=== PATIENT | male | born 1965 | race Caucasian/White ===

== ENCOUNTER → 2021-03-26 | Outpatient (CLI) | payer BC ==
[~2021-03-26] MED LIST: AZIT500 PO; HYDACE5 PO; TOBR.3OPSO OS
[2021-03-26 18:56] LABS: BASOPHILS ABSOLUTE AUTO 0.01 K/mm3 (0.00-0.23); BASOPHILS PERCENT AUTO 0 % (0-2); EOSINOPHILS ABSOLUTE AUTO 0.03 K/mm3 (0.00-0.68); EOSINOPHILS PERCENT AUTO 1 % (0-6); Hematocrit 45.9 % (37.0-53.0); IMMATURE GRAN ABSOLUTE AUTO 0.06 K/mm3 (0.00-0.10); IMMATURE GRAN PERCENT AUTO 1 % (0-1); LYMPHOCYTES ABSOLUTE AUTO 0.96 K/mm3 (0.84-5.20); LYMPHOCYTES PERCENT AUTO 15 % (21-46); MONOCYTES ABSOLUTE AUTO 0.29 K/mm3 (0.16-1.47); MONOCYTES PERCENT AUTO 5 % (4-13); Mean Corpuscular HGB 28.7 pg (26.0-34.0); Mean Corpuscular HGB Conc 34.9 g/dL (31.5-36.5); Mean Corpuscular Volume 82 fL (80-100); Mean Platelet Volume 9.6 fL (9.1-12.4); NEUTROPHILS ABSOLUTE AUTO 4.95 K/mm3 (1.96-9.15); NEUTROPHILS PERCENT AUTO 79 % (41-73); Platelet Count 331 K/mm3 (150-400); RDW Coefficient Variation 13.2 % (11.7-14.2); RDW Standard Deviation 39.4 fL (35.1-46.3); Red Blood Cell Count 5.58 M/mm3 (4.30-5.90)
[2021-03-26 19:09] LABS: Anion Gap 15 mmol/L (6-16); Blood Urea Nitrogen 18 mg/dL (8-24); CO2, Blood 22 mmol/L (21-32); Calcium, Blood 8.6 mg/dL (8.5-10.1); Chloride, Blood 101 mmol/L (98-108); Creatinine, Blood 0.82 mg/dL (0.60-1.20); Glomerular Filtration Rate >60 (60-); Glucose, Blood 106 mg/dL (70-99); Potassium, Blood 3.5 mmol/L (3.5-5.5); Sodium, Blood 138 mmol/L (136-145)
== END | disposition home or self-care (01) ==
LOC: LAB SHORT 18:50
PROVIDERS: Physician Assistant Surgical
DX: R53.83 Other fatigue (principal); R06.09 Other forms of dyspnea
CPT/HCPCS: 80048; 84443; 84484; 85025; 85379

== ENCOUNTER 2021-09-28 02:59 | Emergency (ER) | payer OTHER | END 2021-09-28 06:42 | disposition home or self-care (01) | LOC: ER 02:59 | DX: R07.9 Chest pain, unspecified (principal); Z87.891 Personal history of nicotine dependence ==

== ENCOUNTER 2023-07-28 04:45 | Inpatient (IN) | payer OTHER ==
[2023-07-28] VITALS (15 sets, daily range): BP systolic 139–192; BP diastolic 91–127
[~2023-07-28] VITALS: Ht 180.3 cm; Wt 119.4 kg
[2023-07-28] MEDS ORDERED: Aspirin 325 MG Tab PO ONE (05:00)
[2023-07-28] MEDS ORDERED: Nitroglycerin Patch 0.4 MG / HR TD ONE (05:00)
[2023-07-28] MEDS ORDERED: Metoprolol Tartrate 1 MG/ML 5 ML VIAL IV ONE (05:05)
[2023-07-28 05:14] LABS: BASOPHILS ABSOLUTE AUTO 0.06 K/mm3 (0.00-0.23); BASOPHILS PERCENT AUTO 1 % (0-2); EOSINOPHILS ABSOLUTE AUTO 0.16 K/mm3 (0.00-0.68); EOSINOPHILS PERCENT AUTO 3 % (0-6); Hemoglobin 17.4 g/dL (13.5-17.5); IMMATURE GRAN ABSOLUTE AUTO 0.01 K/mm3 (0.00-0.10); IMMATURE GRAN PERCENT AUTO 0 % (0-1); LYMPHOCYTES ABSOLUTE AUTO 1.64 K/mm3 (0.84-5.20); LYMPHOCYTES PERCENT AUTO 28 % (21-46); MONOCYTES ABSOLUTE AUTO 0.47 K/mm3 (0.16-1.47); MONOCYTES PERCENT AUTO 8 % (4-13); Mean Corpuscular HGB 28.2 pg (26.0-34.0); Mean Corpuscular HGB Conc 32.8 g/dL (31.5-36.5); Mean Corpuscular Volume 86 fL (80-100); Mean Platelet Volume 9.9 fL (9.1-12.4); NEUTROPHILS ABSOLUTE AUTO 3.46 K/mm3 (1.96-9.15); NEUTROPHILS PERCENT AUTO 60 % (41-73); Platelet Count 252 K/mm3 (150-400); RDW Coefficient Variation 13.7 % (11.7-14.2); RDW Standard Deviation 42.9 fL (35.1-46.3); Red Blood Cell Count 6.18 M/mm3 (4.30-5.90)
[2023-07-28 05:28] LABS: Anti-Xa UFH, PHA Monitoring <0.10 IU/mL; International Normalized Ratio 0.96; Prothrombin Time Results 10.3 Sec (9.7-11.5)
[2023-07-28 05:36] LABS: Alanine Aminotransfer (ALT/SGP 69 U/L (12-78); Albumin, Blood 3.9 g/dL (3.4-5.0); Albumin/Globulin Ratio 1.1 (0.8-1.8); Alk Phos 104 U/L (50-136); Anion Gap 10 mmol/L (3-11); Aspartate Aminotrans (AST/SGOT 28 U/L (12-37); Bilirubin, Total 0.3 mg/dL (0.1-1.0); Blood Urea Nitrogen 22 mg/dL (8-24); Bun/Creatinine Ratio 25.1 (12.0-20.0); CO2, Blood 23 mmol/L (21-32); Calcium, Blood 9.7 mg/dL (8.5-10.1); Chloride, Blood 113 mmol/L (98-108); Creatinine, Blood 0.88 mg/dL (0.60-1.20); Globulin, Blood 3.6 g/dL (2.2-4.0); Glomerular Filtration Rate 102 (60-); Glucose, Blood 124 mg/dL (70-99); Potassium, Blood 4.2 mmol/L (3.5-5.5); Sodium, Blood 142 mmol/L (136-145); Total Protein, Blood 7.5 g/dL (6.4-8.2)
[2023-07-28] MEDS ORDERED: Acetaminophen 325 MG TABLET PO PRN (05:50)
[2023-07-28] MEDS ORDERED: Ondansetron HCl 2 MG / ML 2ML Vial IV PRN (05:55)
[2023-07-28] MEDS ORDERED: Lactated Ringer's 1,000 ML IV SCH (06:00)
[2023-07-28 06:19] LABS: CHOL/HDL RATIO 5.9; Cholesterol 224 mg/dL (50-200); HDL Cholesterol 38 mg/dL (>39); LDL/HDL RATIO 3.5; Low Density Lipoprotein Chol 133 mg/dL (0-110); Triglycerides 265 mg/dL (30-160); Very Low Density Lipoprot Chol 53 mg/dL (6-32)
[2023-07-28] MEDS ORDERED: Dose Adjust by Pharmacy XX STA ×2 (06:39→21:46)
[2023-07-28] MEDS ORDERED: Heparin Sodium,Porcine/0.5 NS 500 ML IV SCH (06:40)
[2023-07-28] MEDS ORDERED: Heparin Sodium 5000 Units/ML 1ML MDV IV ONE (06:40)
[2023-07-28] MEDS ORDERED: Metoprolol Succinate 25 MG TABCR PO SCH (09:00)
[2023-07-28] MEDS ORDERED: Aspirin 81 MG Chew PO SCH (09:00)
[2023-07-28] MEDS ORDERED: Atorvastatin 40 MG Tab PO SCH (09:00)
--- NOTE | 2023-07-28 09:30 | NUR ---
INITIAL ASSESSMENT: Report recieved from Israel TOWNSEND RN, patient arrived to PCU 16 via gurney and was able to abmulate to the bed IND. He is alert and oriented x4. He reports he was having chest pressure that went up his neck and down into his arm, it woke him from sleep last night. He reports slight chest pressure, rates it at a 3/10, he states its much better than last night. HRR, he is in SR with some PVCs in the 80s. He is still hypertensive, 158/125-po metoprolol given at this time. LS CTA, patient does have a history of LLL lobectomy, Biox is high 90s on RA. BT+, mild distention-pt states is normal. He is able to ambulate to the bathroom IND. Dr. Salinas at the bedside to discuss angiogram. Patient denies other needs at this time. Call light in reach.
[2023-07-28] MEDS ORDERED: Oxymetazoline 0.05% Nasal Relief Spray 15mL BTL PRN (10:00)
[2023-07-28] MEDS ORDERED: IBUP200 PO (10:06)
[2023-07-28] MEDS ORDERED: AFRIN15 M6 INH (10:06)
[2023-07-28] MEDS ORDERED: Heparin Sodium 1000 Units/ML 10ML MDV ONE ×2 (10:31→11:04)
[2023-07-28] MEDS ORDERED: Nitroglycerin 2 MG/20 ML BTL ONE (10:31)
[2023-07-28] MEDS ORDERED: NS 1,000 ML IV ONE ×2 (10:31→10:57)
[2023-07-28] MEDS ORDERED: NiCARdipine HCL 1,000 MCG/5 ML SYR ONE (10:31)
[2023-07-28] MEDS ORDERED: NS 250 ML IV ONE (10:31)
[2023-07-28] MEDS ORDERED: FentaNYL Citrate 50 MCG/ML 2 ML Injection ONE (10:57)
[2023-07-28] MEDS ORDERED: Midazolam HCl 1MG / ML 2ML Vial ONE (10:57)
[2023-07-28] MEDS ORDERED: Ticagrelor 90 MG TABLET ONE (11:17)
--- NOTE | 2023-07-28 12:00 | NUR ---
Update: Patient arrived back from the [facility] lab[facility]. He has a right radial site with TR band in place, 12 cc in the band. Site has minimal oozing good cap refill, good pleth, and the patient is not C/O any N/T. Patient has multivessel disease and will need to be transferred for a CABG, [facility] staff will update us when they have an accepting physician.
--- NOTE | 2023-07-28 14:00 | NUR ---
Update: Dr. Chacon called to norify her of patients hypertension, see new orders. Patient has been accepted at [facility] with an anticipated transfer date of tomorrow or the next day. This RN went to start to deflate the TR band and there was only 2cc of air left, will check for leaks. There is a hematoma above the site, pressure was applied for a couple of minutes, will reassess again before I restart the hep gtt.
[2023-07-28] MEDS ORDERED: Metoprolol Tartrate 25 MG Tab PO SCH ×2 (14:05→18:00)
--- NOTE | 2023-07-28 18:40 | NUR ---
Summary: Patient arrived to PCU from the ED this AM, he was admitted with chest pain that woke him last night. He is alert and orietned x4. HRR, he has been SR with PVCs in the 70s-80s, blood pressure has been high-its better with metoprolol dosing change. He had an angiogram done today, he has multivessle disease and needs a CABG. He has been accepted at [facility] with an anticipated transfer date of tomorrow or the following day. He has been chest pain free. LS CTA, biox has been high 90s on RA. BT+, he was able to have a BM this evening. PPP, no edema present. This RN restarted his hep gtt post cath at 12u/kg/hr. He has a medium sized hematoma above his radial site, it has been stable after holding pressure for a couple on minutes.
[2023-07-29 00:22] VITALS: BP 140/103
[2023-07-29 03:59] VITALS: BP 103/79
[2023-07-29] MEDS ORDERED: Nicotine 7 MG PATCH TOP SCH (04:10)
[2023-07-29 04:11] LABS: BASOPHILS ABSOLUTE AUTO 0.05 K/mm3 (0.00-0.23); BASOPHILS PERCENT AUTO 1 % (0-2); EOSINOPHILS ABSOLUTE AUTO 0.21 K/mm3 (0.00-0.68); EOSINOPHILS PERCENT AUTO 3 % (0-6); Hematocrit 49.8 % (37.0-53.0); Hemoglobin 16.5 g/dL (13.5-17.5); IMMATURE GRAN ABSOLUTE AUTO 0.01 K/mm3 (0.00-0.10); IMMATURE GRAN PERCENT AUTO 0 % (0-1); LYMPHOCYTES ABSOLUTE AUTO 1.95 K/mm3 (0.84-5.20); LYMPHOCYTES PERCENT AUTO 27 % (21-46); MONOCYTES ABSOLUTE AUTO 0.55 K/mm3 (0.16-1.47); MONOCYTES PERCENT AUTO 8 % (4-13); Mean Corpuscular HGB 28.4 pg (26.0-34.0); Mean Corpuscular HGB Conc 33.1 g/dL (31.5-36.5); Mean Corpuscular Volume 86 fL (80-100); Mean Platelet Volume 10.3 fL (9.1-12.4); NEUTROPHILS PERCENT AUTO 62 % (41-73); Platelet Count 245 K/mm3 (150-400); RDW Coefficient Variation 13.8 % (11.7-14.2); RDW Standard Deviation 43.1 fL (35.1-46.3); White Blood Cell Count 7.37 K/mm3 (4.00-11.30)
[2023-07-29 04:32] LABS: Albumin, Blood 3.5 g/dL (3.4-5.0); Albumin/Globulin Ratio 1.1 (0.8-1.8); Bilirubin, Total 0.5 mg/dL (0.1-1.0); Bun/Creatinine Ratio 18.7 (12.0-20.0); Calcium, Blood 8.6 mg/dL (8.5-10.1); Creatinine, Blood 0.91 mg/dL (0.60-1.20); Globulin, Blood 3.2 g/dL (2.2-4.0); Magnesium, Blood 1.7 mg/dL (1.6-2.4); Potassium, Blood 4.5 mmol/L (3.5-5.5); Total Protein, Blood 6.7 g/dL (6.4-8.2)
--- NOTE | 2023-07-29 04:53 | NUR ---
END OF SHIFT NOTE: NO ACUTE EVENTS OVERNIGHT. PT ALERT, ORIENTED X4. ABLE TO CALL APPROPRIATELY & COMMUNICATE NEEDS W/ STAFF. HR 70-80'S, SINUS ON TELE. SBP 100-140'S, DENIES CHEST PAIN/PRESSURE. SPO2 >90% ON RA, RESPIRATIONS EVEN & UNLABORED. ANGIO SITE TO R WRIST INTACT, HEMATOMA PRESENT ON DAY SHIFT HAS IMPROVED. NO BLEEDING PRESENT. RADIAL PULSES PALPABLE. HEP GTT INFUSING AT 14U/KG/HR PER PHARMACY. LR INFUSING AT 75ML/HR. INDEPENDENTLY AMBULATING TO RESTROOM TO VOID W/O DIFFICULTY. SPOUSE AT THE BEDSIDE. STILL AWAITING TRANSFER AT THIS TIME. NO OTHER NEEDS AT THIS TIME. CALL LIGHT IN REACH. WILL REPORT TO ONCOMING DAY RN.
[2023-07-29] MEDS ORDERED: Dose Adjust by Pharmacy XX STA ×2 (05:04→12:26)
[2023-07-29 07:45] VITALS: BP 142/103
[2023-07-29] MEDS ORDERED: Lisinopril 5 MG Tab PO SCH (09:00)
[2023-07-29 11:35] VITALS: BP 135/89
--- NOTE | 2023-07-29 13:04 | NUR ---
ASSUMED CARE OF PT WHILE PRIMARY RN TO LUNCH. PT IS RESTING IN BED AND DENIES ANY CURRENT NEEDS, FAMILY AT BEDSIDE AND CALL LIGHT IN REACH
[2023-07-29 13:42] VITALS: BP 135/89
--- NOTE | 2023-07-29 14:53 | NUR ---
COBRA TRANSFER SUMMARY PT A&OX4. VSS. PT DENIES CP/PRESSURE. HEP GTT INFUSING PER EMAR. PT TRANSFERRIN TO [facility]. AMBULATED TO BATHROOM INDEPENDENTLY TO VOID PRIOR TO XFER. TRANSPORT ARRIVED, REPORT GIVEN. TELEMETRY REMOVED. PT TAKEN BY GURNEY/AMBULANCE. REPORT CALLED TO [facility]/BETO GORDON RN. FAMILY IN ROOM TO FOLLOW BEHIND AMBULANCE. PAPERWORK GIVEN TO TRANSPORT TEAM.
== END 2023-07-29 14:08 | disposition short-term general hospital (02) | DRG 282 ==
LOC: ER 04:45 → ERHOLD 05:48 → PCU 05:48
PROVIDERS: Emergency Medicine; ADMIT Student in an Organized Health Care Education/Training Program
PROC: B2111ZZ Fluoroscopy of Multiple Coronary Arteries using Low Osmolar Contrast (ICD-10-PCS; principal; 2023-07-28)
PROC: 4A023N7 Measurement of Cardiac Sampling and Pressure, Left Heart, Percutaneous Approach (ICD-10-PCS; 2023-07-28)
DX: I21.4 Non-ST elevation (NSTEMI) myocardial infarction (principal); I10 Essential (primary) hypertension; I20.0 Unstable angina; E78.5 Hyperlipidemia, unspecified; Z90.2 Acquired absence of lung [part of]; Z85.118 Personal history of other malignant neoplasm of bronchus and lung; E66.9 Obesity, unspecified; I16.0 Hypertensive urgency; Z87.891 Personal history of nicotine dependence; Z68.30 Body mass index [BMI] 30.0-30.9, adult
CPT/HCPCS: 36415; 71045; 76937; 80053; 80061; 83036; 83735; 84443; 84484; 85025; 85347; 85520; 85610; 85730; 93005; 93010; 93454; 94762; 96374-59; 99152; 99153; 99285-25; A9270; C1769; C1887; C1894; C8929; J1644; J2250; J3010; J7030; J7050; J7120; Q9957; Q9967

== ENCOUNTER → 2024-10-21 | Outpatient (CLI) | payer OTHER ==
[~2024-10-21] MED LIST changes: +AFRIN15 M6 INH; +IBUP200 PO
[2024-10-21 13:00] LABS: BASOPHILS ABSOLUTE AUTO 0.07 K/mm3 (0.00-0.23); BASOPHILS PERCENT AUTO 1 % (0-2); EOSINOPHILS ABSOLUTE AUTO 0.17 K/mm3 (0.00-0.68); EOSINOPHILS PERCENT AUTO 3 % (0-6); Hematocrit 51.9 % (37.0-53.0); Hemoglobin 17.8 g/dL (13.5-17.5); IMMATURE GRAN ABSOLUTE AUTO 0.01 K/mm3 (0.00-0.10); IMMATURE GRAN PERCENT AUTO 0 % (0-1); LYMPHOCYTES ABSOLUTE AUTO 1.90 K/mm3 (0.84-5.20); LYMPHOCYTES PERCENT AUTO 31 % (21-46); MONOCYTES ABSOLUTE AUTO 0.61 K/mm3 (0.16-1.47); MONOCYTES PERCENT AUTO 10 % (4-13); Mean Corpuscular HGB Conc 34.3 g/dL (31.5-36.5); Mean Corpuscular Volume 88 fL (80-100); NEUTROPHILS ABSOLUTE AUTO 3.41 K/mm3 (1.96-9.15); NEUTROPHILS PERCENT AUTO 55 % (41-73); NRBC ABSOLUTE 0.00 K/mm3 (0.00-0.02); NRBC Auto 0.0 /100 WBC (0.0-0.2); Platelet Count 268 K/mm3 (150-400); RDW Coefficient Variation 13.3 % (11.7-14.2); RDW Standard Deviation 42.7 fL (35.1-46.3)
[2024-10-21 13:12] LABS: Alanine Aminotransfer (ALT/SGP 103.0 U/L (12-78); Albumin, Blood 4.3 g/dL (3.4-5.0); Albumin/Globulin Ratio 1.1 (0.8-1.8); Anion Gap 15.0 mmol/L (3-11); Aspartate Aminotrans (AST/SGOT 41.0 U/L (12-37); Bilirubin, Total 0.6 mg/dL (0.1-1.0); Blood Urea Nitrogen 20.0 mg/dL (8-24); CO2, Blood 28.0 mmol/L (21-32); Calcium, Blood 10.0 mg/dL (8.5-10.1); Chloride, Blood 105.0 mmol/L (98-108); Creatinine, Blood 0.98 mg/dL (0.60-1.20); Globulin, Blood 3.9 g/dL (2.2-4.0); Glucose, Blood 121.0 mg/dL (70-99); Potassium, Blood 4.5 mmol/L (3.5-5.5); Sodium, Blood 143.0 mmol/L (136-145); Total Protein, Blood 8.2 g/dL (6.4-8.2)
== END | disposition home or self-care (01) ==
LOC: LAB SHORT 12:55 → LAB 12:55
PROVIDERS: Physician Assistant
DX: I10 Essential (primary) hypertension (principal)
CPT/HCPCS: 80053; 83690; 84484; 85025

== ENCOUNTER 2024-12-04 11:35 | Day surgery (SDC) | payer OTHER ==
[2024-12-04] VITALS (16 sets, daily range): BP systolic 102–155; BP diastolic 69–103
[~2024-12-04] VITALS: Ht 182.9 cm; Wt 87.0 kg
[~2024-12-04 11:35] MED LIST changes: +ATOR80; +Amlodipine Bes2.5 MG PO; +Aspir 8181 MG PO; +CARV25 PO; +LOSA50 PO
--- NOTE | 2024-12-04 12:26 | NUR ---
12/04/24 1226 Aleta Lopez CONFIRMED AND REVIEWED H&P, MEDCICATIONS, ALLERGIES, MEDICAL HISTORY, RESPIRATORY HISTORY, VITAL SIGNS, 3-LEAD EKG, CONSENTS, AND PHYSICIAN ORDERS. PATIENT CONFIRMS NPO STATUS AND AGREES WITH SCHEDULED PROCEDURE. MONITOR INTACT WITH CONTINUOUS PULSE OXIMETRY, CAPNOGRAPHY, 3-LEAD EKG, INTERMITTENT BP. SUPPLEMENTAL O2 TO BE TITRATED THROUGHOUT PROCEDURE TO MAINTAIN O2 SATURATION ABOVE 90%. PATIENT DETERMINED TO BE ASA APPROPRIATE FOR PROPOFOL SEDATION PRIOR TO START OF PROCEDURE BY DR. ARAMBULA
--- NOTE | 2024-12-04 12:29 | NUR ---
PRE PROCEDURE NOTE PT A&OX4, BREATHING RA, NO COMPLAINTS, TALKATIVE. Ambulatory in Day Surgery Patient confirms NPO status and agrees with scheduled surgery. Pre-Op teaching done. Pt verbalizes understanding.
== END 2024-12-04 23:00 | disposition home or self-care (01) ==
LOC: ORSCMMR 11:35 → ORD 12:45 → ORSCMMR 12:45
PROVIDERS: Internal Medicine Gastroenterology
PROC: 0DBL8ZX Excision of Transverse Colon, Via Natural or Artificial Opening Endoscopic, Diagnostic (ICD-10-PCS; principal; 2024-12-04 12:45)
DX: Z12.11 Encounter for screening for malignant neoplasm of colon (principal); D12.3 Benign neoplasm of transverse colon; I10 Essential (primary) hypertension; I25.2 Old myocardial infarction; I25.10 Atherosclerotic heart disease of native coronary artery without angina pectoris; Z79.899 Other long term (current) drug therapy; Z79.82 Long term (current) use of aspirin
CPT/HCPCS: 88305; J2704; J7120